=== PATIENT | female | born 1970 | race Two or more races ===

== ENCOUNTER 2020-09-07 10:23 | Outpatient (CLI) | payer OTHER ==
[~2020-09-07 10:23] MED LIST: AMBIEN10 MG; DICLOFENAC SODI50 MG PO
== END 2020-09-07 10:30 | disposition home or self-care (01) ==
LOC: TOM 10:23
PROVIDERS: ATTEND Internal Medicine
DX: M54.5 Low back pain (principal)

== ENCOUNTER 2021-03-28 15:30 | Outpatient (CLI) | payer OTHER | END 2021-03-28 15:34 | disposition home or self-care (01) | LOC: RAD 15:30 | DX: M67.863 Other specified disorders of tendon, right knee (principal) ==

== ENCOUNTER 2021-05-23 11:27 | Outpatient (CLI) | payer OTHER | END 2021-05-23 12:58 | disposition home or self-care (01) | LOC: MRI 11:27 | DX: M54.2 Cervicalgia (principal); M51.36 Other intervertebral disc degeneration, lumbar region; M54.5 Low back pain | CPT/HCPCS: 72141; 72148 ==

== ENCOUNTER 2021-09-17 12:42 | Outpatient (CLI) | payer OTHER | END 2021-09-17 14:16 | disposition home or self-care (01) | LOC: RAD 12:42 | DX: M54.59 Other low back pain (principal); M54.2 Cervicalgia ==

== ENCOUNTER 2021-12-25 08:05 | Outpatient (CLI) | payer OTHER | END 2021-12-25 08:14 | disposition home or self-care (01) | LOC: MAMO-SONO 08:05 | PROVIDERS: ATTEND Anesthesiology | DX: N63.10 Unspecified lump in the right breast, unspecified quadrant (principal); N63.20 Unspecified lump in the left breast, unspecified quadrant ==

== ENCOUNTER 2022-08-08 12:32 | Outpatient (CLI) | payer OTHER | END 2022-08-08 12:49 | disposition home or self-care (01) | LOC: MRI 12:32 | PROVIDERS: ATTEND Internal Medicine | DX: S83.200A Bucket-handle tear of unspecified meniscus, current injury, right knee, initial encounter (principal) | CPT/HCPCS: 73718 ==

== ENCOUNTER 2022-10-23 13:37 | Outpatient (CLI) | payer OTHER | END 2022-10-23 13:40 | disposition home or self-care (01) | LOC: NUCLEAR 13:37 | PROVIDERS: ATTEND Internal Medicine | DX: M81.0 Age-related osteoporosis without current pathological fracture (principal) ==

== ENCOUNTER 2023-03-20 12:19 | Outpatient (CLI) | payer OTHER | END 2023-03-20 12:27 | disposition home or self-care (01) | LOC: MAMO-SONO 12:19 | PROVIDERS: ATTEND Anesthesiology | DX: Z12.31 Encounter for screening mammogram for malignant neoplasm of breast (principal); N63.10 Unspecified lump in the right breast, unspecified quadrant; N63.20 Unspecified lump in the left breast, unspecified quadrant ==

== ENCOUNTER → 2024-06-25 14:46 | Outpatient (CLI) | payer OTHER | END | disposition home or self-care (01) | LOC: MAMO-SONO 14:46 | PROVIDERS: ATTEND Internal Medicine | DX: N63.10 Unspecified lump in the right breast, unspecified quadrant (principal); N63.20 Unspecified lump in the left breast, unspecified quadrant; Z12.31 Encounter for screening mammogram for malignant neoplasm of breast; E04.1 Nontoxic single thyroid nodule; R94.6 Abnormal results of thyroid function studies ==

== ENCOUNTER 2024-07-02 08:31 | Outpatient (CLI) | payer OTHER | END 2024-07-02 08:45 | disposition home or self-care (01) | LOC: TOM 08:31 | DX: R10.9 Unspecified abdominal pain (principal) | CPT/HCPCS: 74177; Q9965 ==

== ENCOUNTER → 2024-07-08 10:59 | Outpatient (CLI) | payer OTHER | END | disposition home or self-care (01) | LOC: NUCLEAR 10:59 | PROVIDERS: ATTEND Internal Medicine | DX: I73.9 Peripheral vascular disease, unspecified (principal); I87.2 Venous insufficiency (chronic) (peripheral) ==

== ENCOUNTER → 2025-05-17 10:44 | Outpatient (CLI) | payer OTHER | END | disposition home or self-care (01) | LOC: NUCLEAR 10:30 | DX: M81.0 Age-related osteoporosis without current pathological fracture (principal) ==